=== PATIENT | female | born 1950 | race Caucasian/White ===

== ENCOUNTER 2017-05-29 15:54 | Outpatient (CLI) | payer MEDICARE ==
--- NOTE | 2017-05-29 16:35 | RAD ---
LUMBAR SPINE: 05/29/17 Three views. HISTORY: Low back pain. There is compression deformity involving the L1 vertebra. There is mild anterior wedging. There is sl ight buckling of the anterior cortex suggesting this may represent an acute or subacute compression i njury. Loss of anterior height is estimated in the 20% range. Posterior alignment is maintained. Ther e is no evidence of retropulsion. The other lumbar vertebrae main normal height and alignment. Modera te degenerative osteophytes are seen throughout. Degenerative disc changes with loss of disc space at L4-5 and L5-S1. Facet hypertrophy is noted throughout. IMPRESSION: 1. There is an anterior wedge compression deformity at L1 which may be acute or subacute as disc ussed above. 2. Moderate degenerative changes of the lumbar spine. POS: [facility]
== END 2017-05-29 15:55 | disposition home or self-care (01) ==
LOC: NAV RAD 15:54
DX: M54.5 Low back pain (principal); M47.896 Other spondylosis, lumbar region; M43.8X6 Other specified deforming dorsopathies, lumbar region
CPT/HCPCS: 72100

== ENCOUNTER 2017-07-21 11:41 | Emergency (ER) | payer MEDICARE ==
[2017-07-21] MEDS ORDERED: Ketorolac Tromethamine 30 MG/ML VIAL ONE (12:23)
[2017-07-21] MEDS ORDERED: Sodium Chloride 0.9% 1,000 ML ONE (13:18)
[2017-07-21 13:40] LABS: #Lymphocytes 0.4 thou/uL (1.20-3.40); #Monocytes 0.3 thou/uL (0.11-0.59); #Neutrophils 7.6 thou/uL (1.40-6.50); %Basophils 0.5 % (0.0-1.0); %Eosinophils 0.1 % (0.0-10.0); %Lymphocytes 4.3 % (21.0-51.0); %Monocytes 3.8 % (0.0-10.0); %Neutrophils 91.4 % (42.0-75.0); Hemoglobin 14.1 g/dL (12.0-16.0); Mean Corpuscular HGB CONC 32.6 g/dL (32.0-36.0); Mean Corpuscular Hemoglobin 27.5 pg (27.0-31.0); Mean Corpuscular Volume 84.4 fl (81.0-99.0); Mean Platelet Volume 6.5 fL (7.4-10.4); Platelet Count 305 thou/uL (130-400); RBC Distribution Width 13.1 % (11.5-14.5); Red Blood Cell (RBC) Count 5.11 mill/uL (4.20-5.40); White Blood Cell (WBC) Count 8.3 thou/uL (4.8-10.8)
[2017-07-21 13:55] LABS: ALT (SGPT) 13 U/L (8-55); AST (SGOT) 17 U/L (5-34); Albumin 3.4 g/dL (3.4-4.8); Alkaline Phosphatase 104 U/L (40-150); Anion Gap 20 mmol/L (10-20); BUN (Urea Nitrogen) 13 mg/dL (9.8-20.1); Bilirubin, Total 0.9 mg/dL (0.2-1.2); CK (CPK) 46 U/L (29-168); Calc. Creatinine Clearance 0 mL/min (70-130); Calcium 9.6 mg/dL (7.8-10.44); Carbon Dioxide 22 mmol/L (23-31); Chloride 93 mmol/L (98-107); Estimated GFR-MDRD 67; Globulin 3.6 g/dL (2.4-3.5); Glucose 108 mg/dL (80-115); Potassium 3.6 mmol/L (3.5-5.1); Sodium 131 mmol/L (136-145)
[2017-07-21 13:57] LABS: CKMB 1.5 ng/mL (0-6.6); Troponin I Less than 0.010 ng/mL (< 0.028)
--- NOTE | 2017-07-21 16:30 | CT ---
CT LUMBAR SPINE 07/21/17 PROVIDED CLINICAL HISTORY: Back pain status post injury. FINDINGS: There is burst fracture of L1 with loss of about one half of vertebral body height. There is retropul melissa of bony fragments such that there is effacement of the ventral aspects of the spinal canal produ cing mild to moderate central canal narrowing. There is surrounding paravertebral hematoma anteriorly . Vertebral body heights appear otherwise preserved. No additional fracture is evident. Multilevel ankit mbar degenerative changes are seen, mild. Vascular calcifications noted involving the abdominal aorta . IMPRESSION: Recent L1 burst fracture as above. POS: [facility]
== END 2017-07-21 16:23 | disposition short-term general hospital (02) ==
LOC: NAV ERS 11:41
DX: S32.011A Stable burst fracture of first lumbar vertebra, initial encounter for closed fracture (principal); R62.7 Adult failure to thrive; E86.0 Dehydration; F17.210 Nicotine dependence, cigarettes, uncomplicated; W01.0XXA Fall on same level from slipping, tripping and stumbling without subsequent striking against object, initial encounter; Y92.512 Supermarket, store or market as the place of occurrence of the external cause
CPT/HCPCS: 72131; 80053; 82550; 82553; 84484; 85025; 93005; 96360; 96361; 96372; 99406; J1885; J7050

== ENCOUNTER 2017-10-04 17:26 | Outpatient (CLI) | payer MEDICARE ==
[2017-10-04 18:07] LABS: #Basophils 0.1 thou/uL (0.0-0.2); #Eosinphils 0.2 thou/uL (0.0-0.7); #Lymphocytes 1.6 thou/uL (1.20-3.40); #Monocytes 0.3 thou/uL (0.11-0.59); #Neutrophils 6.4 thou/uL (1.40-6.50); %Basophils 0.8 % (0.0-1.0); %Eosinophils 2.4 % (0.0-10.0); %Lymphocytes 18.8 % (21.0-51.0); %Monocytes 3.9 % (0.0-10.0); Hemoglobin 12.7 g/dL (12.0-16.0); Mean Corpuscular Hemoglobin 26.6 pg (27.0-31.0); Mean Corpuscular Volume 85.9 fL (78.0-98.0); Mean Platelet Volume 5.8 fL (7.4-10.4); Platelet Count 581 thou/uL (130-400); RBC Distribution Width 13.3 % (11.5-14.5); Red Blood Cell (RBC) Count 4.77 mill/uL (4.20-5.40); White Blood Cell (WBC) Count 8.7 thou/uL (4.8-10.8)
[2017-10-04 18:24] LABS: ALT (SGPT) 6 U/L (8-55); AST (SGOT) 11 U/L (5-34); Albumin 3.2 g/dL (3.4-4.8); Alkaline Phosphatase 110 U/L (40-150); Anion Gap 16 mmol/L (10-20); BUN (Urea Nitrogen) 6 mg/dL (9.8-20.1); Bilirubin, Direct 0.2 mg/dL (0.1-0.3); Bilirubin, Total 0.3 mg/dL (0.2-1.2); Calc. Creatinine Clearance 0 mL/min (70-130); Calcium 9.5 mg/dL (7.8-10.44); Carbon Dioxide 27 mmol/L (23-31); Cardiac Risk 4.7 (Less than 4.5); Chloride 94 mmol/L (98-107); Cholesterol 186 mg/dl (< 200 Desired); Estimated GFR-MDRD 74; Glucose 95 mg/dL (80-115); HDL Cholesterol 40 mg/dL (>60 Neg Risk); LDL Cholesterol, Calculated 111 mg/dL; Protein, Total 6.9 g/dL (6.0-8.3); Sodium 134 mmol/L (136-145); Triglycerides 173 mg/dL (Less than 150)
[2017-10-04 19:06] LABS: Potassium 2.8 mmol/L (3.5-5.1)
[2017-10-04 20:16] LABS: Hemoglobin A1c 4.6 % (4.0-6.0)
== END 2017-10-04 17:27 | disposition home or self-care (01) ==
LOC: NAV LAB 17:26
PROVIDERS: ATTEND Family Medicine
DX: I10 Essential (primary) hypertension (principal); R35.0 Frequency of micturition; Z72.0 Tobacco use; Z79.899 Other long term (current) drug therapy
CPT/HCPCS: 36415; 80048; 80061; 80076; 83036; 84443; 85025

== ENCOUNTER 2017-10-05 12:21 | Outpatient (CLI) | payer MEDICARE ==
[2017-10-05 15:50] LABS: Bilirubin Negative (Negative); Blood, Urine Negative (Negative); Clarity Clear (Clear); Glucose, Urine (Dipstick) Negative (Negative); Leukocyte Trace (Negative); Nitrite Negative (Negative); Protein, Urine (Dipstick) Negative (Neg-Trace); Specific Gravity, Urine 1.015 (1.005-1.030); Urobilinogen 0.2 mg/dL (0.2-1.0)
[2017-10-05 16:02] LABS: Bacteria/HPF None Seen HPF (None Seen); RBC/HPF 0-3 HPF (0-3); Squamous Epithelial 0-3 HPF (0-3); WBC/HPF 0-3 HPF (0-3); Yeast-All Forms 1+ HPF (None Seen)
== END 2017-10-05 12:22 | disposition home or self-care (01) ==
LOC: NAV LABSP 12:21
PROVIDERS: ATTEND Family Medicine
DX: I10 Essential (primary) hypertension (principal); F17.200 Nicotine dependence, unspecified, uncomplicated; R35.0 Frequency of micturition; Z79.899 Other long term (current) drug therapy
CPT/HCPCS: 81003; 81015; 87086